=== PATIENT | female | born 1990 | race African-American/Black ===

== ENCOUNTER 2019-05-05 18:08 | Inpatient (IN) | payer OTHER, MEDICAID ==
[2019-05-05] MEDS ORDERED: RINGERS SOLUTION,LACTATED 1,000 ML IV ONE (19:02)
[2019-05-05] MEDS ORDERED: RINGERS SOLUTION,LACTATED 1,000 ML IV PRN (19:02)
[2019-05-05] MEDS ORDERED: MISOPROSTOL 0.2 MG TABLET ONE (19:34)
[2019-05-05] MEDS ORDERED: LIDOCAINE 1% INJ-PF (10 MG/ML) 30 ML SDV ONE (19:34)
[2019-05-05] MEDS ORDERED: OXYTOCIN/NORMAL SALINE 20 UNIT/1,000 ML RTUINJ ONE (19:34)
[2019-05-05] MEDS ORDERED: OXYTOCIN 10 UNIT/ML VIAL ONE (19:34)
[2019-05-05] MEDS ORDERED: OXYTOCIN/NORMAL SALINE 20 UNIT/1,000 ML RTUINJ IV PRN (19:43)
[2019-05-05 20:14] LABS: ABSOLUTE BASOPHILS # (AUTO) 0.1 10^3/uL (0.0-0.2); ABSOLUTE EOSINOPHILS # (AUTO) 0.1 10^3/uL (0.0-0.6); ABSOLUTE LYMPHOCYTES (AUTO) 1.4 10^3/uL (0.5-4.7); ABSOLUTE MONOCYTES (AUTO) 0.7 10^3/uL (0.1-1.4); ABSOLUTE NEUT (AUTO) 4.5 10^3/uL (1.7-8.2); EOSINOPHILS % (AUTO) 1.6 % (0-6); HEMATOCRIT 35.1 % (36.0-47.0); HEMOGLOBIN 11.6 g/dL (12.0-15.5); LYMPHOCYTES % (AUTO) 20.4 % (13-45); MEAN CORPUSCULAR HEMOGLOBIN 28.4 pg (27.0-33.4); MEAN CORPUSCULAR HGB CONC 33.1 g/dL (32.0-36.0); MEAN CORPUSCULAR VOLUME 86 fl (80-97); MONOCYTES % (AUTO) 10.1 % (3-13); PLATELET COUNT 465 10^3/uL (150-450); RED BLOOD COUNT 4.09 10^6/uL (3.72-5.28); RED CELL DISTRIBUTION WIDTH 17.6 % (11.5-14.0); SEGMENTED NEUTROPHILS % (AUTO) 66.9 % (42-78); TOTAL CELLS COUNTED % (AUTO) 100 %; WHITE BLOOD COUNT 6.7 10^3/uL (4.0-10.5)
--- NOTE | 2019-05-05 20:27 | Admission Physical ---
Datetime Report Generated by CPN: 05/05/2019 20:26 CURRENT ADMISSION Chief Complaint: Scheduled Induction of Labor Indication for Induction: Maternal Diabetes Admit Impression : Term, Intrauterine ; No Active Labor; Intact Membranes; Induction of Labor Admit Plan: Admit to Unit; Initiate Labor Induction Protocol ALLERGIES Medication Allergies: No Medication Allergies: No Known Allergies (05/05/2019) Latex: No Latex Allergies OBSTETRICAL HISTORY EDC: 05/04/2019 00:00 : 1 Para: 0 Term: 0 : 0 SAB: 0 IAB: 0 Ectopic: 0 Livin Cesareans: 0 VBACs: 0 Multiple Births: 0 Gestational Diabetes: Yes Rh Sensitization: No Incompetent Cervix: No NO: No Infertility: No ART Treatment: No Uterine Anomaly: No IUGR: No Hx Previous C/S: No Macrosomia: No Hx Loss/Stillborn: No PIH: No Hx : No Placenta Previa/Abruption: No Depression/PP Depression: No PTL/PROM: No Post Hemorrhage: No Current Procedures: None; Ultrasound Obstetrical History Comments: G1-current SEE RECORDS Alcohol: No Marijuana : No Cocaine: No Other Illicit Drugs: No Cigarettes: Never Smoker. 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 Surgery: No Heart Disease: No Hosp/Surgery: No Autoimmune Disorder: No Anesthetic Complications: No Kidney Disease: No Abnormal Pap Smear: No Neuro/Epilepsy: No Psychiatric Disorders: No Other Medical Diseases: No Hepatitis/Liver Disease: No Varicosities/Phlebitis: No Thyroid Dysfunction: No Medical History Comments: Mother-Pre eclampsia, labor, hypertension INFECTIOUS HISTORY Gonorrhea: No Genital Herpes: No Chlamydia: No Tuberculosis: No Syphilis: No Hepatitis: No HIV/AIDS Exposure: No HPV: No PHYSICAL EXAM General: Normal HEENT: Normal Neurologic: Normal Thyroid: Deferred Heart: Normal Lungs: Normal Breast: Deferred Back: Normal Abdomen: Normal Genitourinary Exam: Normal Extremities: Normal DTRs: Normal Pelvic Type: Adequate Vital Signs: Reviewed VAGINAL EXAM Dilatation: 1 Effacement: 60 Station: -3 Contraction Comments: q 3-7 MEMBRANES Membranes: Intact FETUS A EGA: 40.1 Monitoring: External US FHR- Baseline: 125 Variability: Moderate 6-25bpm Accelerations: 15X15 Decelerations: None FHR Category: Category I Presentation: Vertex Admit Comment: 29yo at 40+1ega presents for IOL due to A2GDM. Cvx 1-2/60/-3 anterior/medium. She is having a lot of contractions. Reviewed medications and safety for induction - she is contractioning too much for cervidil or cytotec as discussed. Plan for cooks catheter and pitocin reviewed. Cooks placed and upon placement increased fluid discharge - will get actimprom. A2GDM on glyburide. Rubella NI. Marginal cord insertion - will monitor cord traction after delivery. admit to labor and delivery and anticipate . PLANS FOR LABOR AND DELIVERY Labor and Delivery: None Pain Management: Epidural Feeding Preference: Both Benefit of Breast Feed Discussed: Yes Circumcision: N/A INFORMED CONSENT Informed Consent Obtained: Vaginal Delivery; Induction of Labor; Risks, Benefits and Alternatives Discussed Signature: with User ID: [email or web address]
[2019-05-05 20:37] LABS: APPEARANCE,URINE SLIGHTLY-CLOUDY; BILIRUBIN,URINE NEGATIVE (NEGATIVE); COLOR,URINE YELLOW; GLUCOSE, URINE NEGATIVE (NEGATIVE); KETONES,URINE NEGATIVE (NEGATIVE); LEUKOCYTE ESTERASE,URINE LARGE (NEGATIVE); NITRITE,URINE NEGATIVE (NEGATIVE); PROTEIN,URINE 30 mg/dL (NEGATIVE); URINE SPECIFIC GRAVITY 1.024; UROBILINOGEN,URINE NEGATIVE mg/dL (<2.0)
[2019-05-05 20:51] LABS: URINE AMPHETAMINES SCREEN NEGATIVE; URINE BARBITURATES SCREEN NEGATIVE; URINE BENZODIAZEPINES SCREEN NEGATIVE; URINE COCAINE SCREEN NEGATIVE; URINE MARIJUANA (THC) SCREEN NEGATIVE; URINE METHADONE SCREEN NEGATIVE; URINE PHENCYCLIDINE SCREEN NEGATIVE
[2019-05-05] MEDS ORDERED: BUPIVACAINE HCL 0.25 % INJ/PF (2.5 MG/1 ML) 30 ML VIAL ONE (23:39)
[2019-05-05] MEDS ORDERED: EPHEDRINE SULFATE INJ 50 MG/1 ML AMPULE ONE (23:39)
[2019-05-05] MEDS ORDERED: FENTANYL/BUPIVACAINE/NS/PF 300 MCG/150 ML RTUINJ EPI ONE (23:39)
[2019-05-06] MEDS ORDERED: TERBUTALINE SULFATE INJ/PF 1 MG/1 ML SDV ONE (04:21)
[2019-05-06] MEDS ORDERED: CEFAZOLIN 1 GM/D5W RTU 1 GM/50 ML RTUPB IV ONE ×3 (12:01→17:14)
[2019-05-06] MEDS ORDERED: LIDOCAINE 1.5%/EPINEPHRINE INJ 5 ML AMP ONE (12:03)
[2019-05-06] MEDS ORDERED: CITRIC ACID/SODIUM CITRATE ORAL SOLN 15 ML UDCUP ONE ×2 (12:03→17:15)
[2019-05-06] MEDS ORDERED: SODIUM BICARBONATE 8.4% INJ 50 MEQ/50 ML DISP.SYRIN ONE (14:52)
[2019-05-06] MEDS ORDERED: SODIUM BICARBONATE 4.2% INJ (2.5 MEQ/5 ML) VIAL ONE (14:52)
[2019-05-06] MEDS ORDERED: MIDAZOLAM 2 MG/2 ML INJ ONE (15:07)
[2019-05-06] MEDS ORDERED: KETOROLAC TROMETHAMINE 60 MG/2 ML SDV ONE (15:19)
[2019-05-06] MEDS ORDERED: OXYTOCIN 10 UNIT/ML VIAL ONE (15:20)
[2019-05-06] MEDS ORDERED: OXYCODONE-ACETAMINOPHEN 5-325 MG TABLET PO PRN ×2 (15:29)
[2019-05-06] MEDS ORDERED: MORPHINE SULFATE 10 MG/ML INJ IV PRN ×2 (15:29→15:55)
[2019-05-06] MEDS ORDERED: ONDANSETRON HCL INJ/PF 4 MG/2 ML SDV IV PRN (15:29)
[2019-05-06] MEDS ORDERED: FENTANYL CITRATE INJ/PF 100 MCG/2 ML AMPUL IV PRN ×3 (15:29)
[2019-05-06] MEDS ORDERED: DIPHENHYDRAMINE HCL 50 MG/ML VIAL IV PRN (15:29)
[2019-05-06] MEDS ORDERED: MEPERIDINE HCL/PF INJ 25 MG/1 ML DISP.SYRIN IV PRN (15:29)
[2019-05-06] MEDS ORDERED: PROMETHAZINE HCL INJ 25 MG/1 ML VIAL IV PRN ×3 (15:29→15:55)
[2019-05-06] MEDS ORDERED: ACETAMINOPHEN 1,000 MG/100 ML RTUPB IV PRN (15:55)
[2019-05-06] MEDS ORDERED: ACETAMINOPHEN 325 MG TABLET PO PRN (15:55)
[2019-05-06] MEDS ORDERED: OXYTOCIN/NORMAL SALINE 20 UNIT/1,000 ML RTUINJ IV PRN (15:55)
[2019-05-06] MEDS ORDERED: SIMETHICONE 80 MG TAB.CHEW PO PRN (15:55)
[2019-05-06] MEDS ORDERED: MEASLES,MUMPS&RUBELLA VACC/PF 0.5 ML VIAL SUBCUT PRN (15:55)
[2019-05-06] MEDS ORDERED: DIPH/PERTUSS(ACELL)/TETANUS VAC/PF 0.5 ML SYR (>=10YO) IM PRN (15:55)
--- NOTE | 2019-05-06 16:05 | Operative Report ---
Operative Report DATE OF SURGERY: 05/06/19 PREOPERATIVE DIAGNOSIS: IUP @ 40 04/01, nonreassuring heart tones POSTOPERATIVE DIAGNOSIS: Same OPERATION: Primary low transverse hysterotomy section SURGEON: EILEEN JACOBS ANESTHESIA: Epidural TISSUE REMOVED OR ALTERED: Placenta COMPLICATIONS: None ESTIMATED BLOOD LOSS: 750 cc INTRAOPERATIVE FINDINGS: Female in cephalic presentation with Apgars of 8 and 9 PROCEDURE: PROCEDURE IN DETAIL: The patient was taken to the operating room, prepared and draped in a normal sterile fashion in a supine position with a leftward tilt. A transverse skin incision was made with a scalpel and carried through to the underlying layer of fascia with the same scalpel. The fascia was excised in the midline and extended laterally with Jag. The fascia was then dissected from the rectus muscle sharply with Jag and the rectus muscle was divided and the peritoneal cavity was entered sharply with the same Metzenbaum. With good visualization of the bladder and the uterus the bladder blade was inserted. The hysterotomy was nicked with a scalpel and extended laterally with surgeon finger fraction. The infant was then delivered atraumatically. The nose and mouth were suctioned with a suction bulb, the cord was clamped and cut and handed off to awaiting pediatricians. Cord blood was collected. The placenta was removed manually. The uterus was exteriorized and cleared of clots and debris. The hysterotomy was closed with 0 Monocryl in a running, locked fashion. A second layer of the same suture was used to imbricate to ensure hemostasis. The uterus was returned to the abdomen and peritoneal cavity was cleared of clots and debris. The rectus muscle and peritoneum were repaired with mattress stitch of 2-0 Chromic. The fascia was closed with 0-Vicryl. The subcutaneous layer was closed with plain catgut and the skin was closed with 4-0 Vicryl. The patient tolerated the procedure well. Sponge, lap, and needle counts correct x2 and the patient was taken to recovery in stable condition.
[2019-05-06] MEDS ORDERED: ACETAMINOPHEN 1,000 MG/100 ML RTUPB IV ONE (17:04)
--- NOTE | 2019-05-06 17:55 | Delivery Summary ---
Del Sum A-C Datetime Report Generated by CPN: 05/06/2019 17:55 DELIVERY PERSONNEL DELIVERY PERSONNEL: [id number] Delivery Doctor:: Lauren Bailey MD Anesthesiologist:: Princess Espinosa MD TELETYPE TELEGRAPHER:: Cony Huddleston CRNA Labor and Delivery Nurse:: Jaylene Crenshaw RN Straightening Roll Operator:: MARITZA Martinez Nurse Practitioner:: MISA Patel Nursery Nurse:: Jordana French RN Cord Cutter/DIALYSIS CLINICAL MANAGER: ST Roxana Cord Cutter/DIALYSIS CLINICAL MANAGER: Kami Mondragon, TANK CARPENTER MATERNAL INFORMATION Delivery Anesthesia: Epidural Meds After Delivery Comment: seeanesthesia record Delivery QBL: 1292 Maternal Complications: None LABOR SUMMARY EDC: 05/04/2019 00:00 No. Babies in Womb: 1 Attempted: No Labor Anesthesia: Epidural LABOR INFORMATION Onset of Labor: 05/06/2019 04:00 Group B Beta Strep: NEGATIVE Antibiotics # of Doses: 0 MEMBRANES Membranes Rupture Method: Spontaneous Rupture of Membranes: 05/06/2019 10:50 Length of Rupture (hr): 4.23 Amniotic Fluid Color: Clear Amniotic Fluid Amount: Small Amniotic Fluid Odor: None STAGES OF LABOR Stage 3 hr: 0 Stage 3 min: 1 Total Time in Labor hr: 11 Total Time in Labor min: 5 CSECTION DELIVERY Primary Indication: Nonreassuring Status CSection Urgency: Emergency CSection Incidence: Primary CSection Incision: Lower Uterine Transverse BABY A INFORMATION Infant Delivery Date/Time: 05/06/2019 15:04 Method of Delivery: Forceps: N/A Vacuum Extraction: N/A PRESENTATION/POSITION BABY A Presentation: Cephalic PLACENTA INFORMATION BABY A Placenta Delivery Time : 05/06/2019 15:05 Placenta Method of Delivery: Spontaneous Placenta Status: Delivered SCORES BABY A Heart Rate 1 min: >100 bpm Resp Effort 1 min: Good Cry Reflex Irritability 1 min: Cough or Sneeze or Pulls Away Muscle Tone 1 min: Active Motion Color 1 min: Body [place], Extremities Blue Resuscitation Effort 1 min: Tactile Stimulation SCORE 1 MIN: 9 Heart Rate 5 min: >100 bpm Resp Effort 5 min: Good Cry Reflex Irritability 5 min: Cough or Sneeze or Pulls Away Muscle Tone 5 min: Active Motion Color 5 min: Body [place], Extremities Blue Resuscitation Effort 5 min: Tactile Stimulation SCORE 5 MIN: 9 INFANT INFORMATION BABY A Gestational Age at Delivery: 40.0 Gestational Status: Full Term- 39- 40.6 Weeks Outcome : Liveborn Infant Condition : Stable Sex: Female IDENTIFICATION BABY A Verification Date/Time: 05/06/2019 15:10 ID Band Number: [id number] Mother's Name Verified: Yes Infant RN Verifying : SAutry Additional Verifying Personnel: CBactat CORD INFORMATION BABY A No. Cord Vessels: 3 Nuchal Cord : Around Neck x2, Tight Cord Blood Taken: Yes-For Storage (Mom's Blood type +) ASSESSMENT BABY A Infant Complications: Multiple Variable Decels Physical Findings at Delivery: Within Normal Limits Infant Respirations: Appears Normal Skin to Skin: Yes Care By: C Bactat Transferred To: [facility]
[2019-05-06] MEDS ORDERED: CEFAZOLIN 2 GM/D5W RTU 2 GM/50 ML RTUPB IV SCH (18:00)
[2019-05-06] MEDS ORDERED: IBUPROFEN 800 MG TABLET PO SCH (18:00)
[2019-05-06] MEDS: DOCUSATE SODIUM 100 MG CAPSULE PO SCH (19:25)
[2019-05-06] MEDS: OXYCODONE-ACETAMINOPHEN 5-325 MG TABLET PO PRN (19:28)
[2019-05-06] MEDS: KETOROLAC TROMETHAMINE INJ/PF 30 MG/1 ML SDV IV SCH (22:21)
[2019-05-07] MEDS: OXYCODONE-ACETAMINOPHEN 5-325 MG TABLET PO PRN ×5 (01:17→19:40)
[2019-05-07] MEDS: KETOROLAC TROMETHAMINE INJ/PF 30 MG/1 ML SDV IV SCH ×2 (05:54→14:22)
[2019-05-07 07:44] LABS: HEMATOCRIT 27.3 % (36.0-47.0); MEAN CORPUSCULAR HEMOGLOBIN 28.7 pg (27.0-33.4); MEAN CORPUSCULAR HGB CONC 33.3 g/dL (32.0-36.0); MEAN CORPUSCULAR VOLUME 86 fl (80-97); PLATELET COUNT 340 10^3/uL (150-450); RED BLOOD COUNT 3.17 10^6/uL (3.72-5.28); RED CELL DISTRIBUTION WIDTH 17.9 % (11.5-14.0); WHITE BLOOD COUNT 7.1 10^3/uL (4.0-10.5)
[2019-05-07 07:45] LABS: HEMOGLOBIN 9.1 g/dL (12.0-15.5)
[2019-05-07] MEDS: DOCUSATE SODIUM 100 MG CAPSULE PO SCH ×2 (10:02→19:14)
[2019-05-07] MEDS: PRENATAL VITAMIN W DHA CAPSULE PO SCH (10:02)
--- NOTE | 2019-05-07 16:32 | PDOC PROGRESS REPORT ---
Subjective-OB Progress Note for:: 05/07/19 Subjective: reports bleeding slowing, pain controlled with current meds, denies needs. +passing gas Physical Exam (OB) Vital Signs: Temp Pulse Resp BP Pulse Ox 98.5 F 110 H 18 110/65 98 05/07/19 15:07 05/07/19 15:07 05/07/19 15:07 05/07/19 15:07 05/07/19 15:07 Intake & Output 05/06/19 05/07/19 05/08/19 06:59 06:59 06:59 Output Total 685 500 Balance -685 -500 Weight 87 kg - PIH/Pre-Eclampsia Clonus: Negative Headache: Absent Epigastric Pain: No Visual Changes: No - Dressing Removed: No Incision: Dressing Closure Type: opsite - Lochia Lochia Amount: Scant < 10 ml Lochia Color: Rubra/Red - Abdomen Description: Tender, Soft, Round Hernia Present: No Fundal Description: Firm, Midline Fundal Height: u/u - u/2 - Extremities Lower extremities: Hoda's sign - neg Calf: Normal, Nontender Objective-Diagnostic Laboratory: 05/07/19 06:29 05/07/19 06:29 WBC 7.1 RBC 3.17 L Hgb 9.1 L D Hct 27.3 L MCV 86 MCH 28.7 MCHC 33.3 RDW 17.9 H Plt Count 340 Assessment and Plan(PN) - Time Spent with Patient Time with patient: Less than 15 minutes Medications reviewed and adjusted accordingly: Yes - Disposition Anticipated Discharge: Home Within: within 48 hours
[2019-05-07] MEDS: IBUPROFEN 800 MG TABLET PO SCH ×2 (18:52→23:37)
[2019-05-08] MEDS: OXYCODONE-ACETAMINOPHEN 5-325 MG TABLET PO PRN ×4 (03:53→20:39)
[2019-05-08] MEDS: IBUPROFEN 800 MG TABLET PO SCH ×5 (05:25→23:27)
--- NOTE | 2019-05-08 09:30 | PDOC PROGRESS REPORT ---
Subjective-OB Progress Note for:: 05/08/19 Subjective: pt in bed, fmaily at BS, does not feel like she can go home today, not passing gas and incisional pain Physical Exam (OB) Vital Signs: Temp Pulse Resp BP Pulse Ox 98.0 F 97 16 110/59 L 100 05/08/19 07:59 05/08/19 07:59 05/08/19 07:59 05/08/19 07:59 05/08/19 07:59 Intake & Output 05/07/19 05/08/19 05/09/19 06:59 06:59 06:59 Output Total 685 500 Balance -685 -500 Weight 88.4 kg - PIH/Pre-Eclampsia DTR's: 1 + Clonus: Negative Headache: Absent Epigastric Pain: No Visual Changes: No - Dressing Removed: No - Opsite Incision: Dressing Closure Type: opsite - Lochia Lochia Amount: Scant < 10 ml Lochia Color: Rubra/Red - Abdomen Description: Tender, Soft, Round Hernia Present: No Fundal Description: Firm Fundal Height: u/u - u/2 Objective-Diagnostic Laboratory: 05/07/19 06:29 Assessment and Plan(PN) - Assessment and Plan (1) Anemia Qualifiers: Anemia type: iron deficiency Is this a current diagnosis for this admission?: Yes (2) delivery delivered Is this a current diagnosis for this admission?: Yes (3) Gestational diabetes mellitus (GDM) during childbirth controlled on oral hypoglycemic therapy Is this a current diagnosis for this admission?: Yes - Time Spent with Patient Time with patient: Less than 15 minutes Medications reviewed and adjusted accordingly: Yes - Disposition Anticipated Discharge: Home Within: within 24 hours
[2019-05-08] MEDS: PRENATAL VITAMIN W DHA CAPSULE PO SCH (09:42)
[2019-05-08] MEDS: DOCUSATE SODIUM 100 MG CAPSULE PO SCH ×2 (09:42→17:45)
[2019-05-09] MEDS: OXYCODONE-ACETAMINOPHEN 5-325 MG TABLET PO PRN ×3 (00:49→13:19)
[2019-05-09] MEDS: IBUPROFEN 800 MG TABLET PO SCH ×2 (05:13→11:58)
[2019-05-09] MEDS: DOCUSATE SODIUM 100 MG CAPSULE PO SCH (09:15)
[2019-05-09] MEDS: PRENATAL VITAMIN W DHA CAPSULE PO SCH (09:15)
--- NOTE | 2019-05-09 11:38 | PDOC DISCHARGE SUMMARY ---
Impression - Admit/DC Date/PCP Admission Date/Primary Care Provider: 05/05/19 18:08 CAYLA SAUCEDO MD Discharge Date: 05/09/19 - POD #3, s/p Primary , failed IOL, Needs MMR vaccine, breast and bottlefeeding - Discharge Diagnosis (1) Normal course Is this a current diagnosis for this admission?: Yes (2) Anemia Is this a current diagnosis for this admission?: Yes (3) delivery delivered Is this a current diagnosis for this admission?: Yes (4) Gestational diabetes mellitus (GDM) during childbirth controlled on oral hypoglycemic therapy Is this a current diagnosis for this admission?: Yes - Additional Information Resuscitation Status: Full Code Discharge Diet: As Tolerated, Regular Discharge Activity: Activity As Tolerated, No Driving, No Lifting Over 10 Brule s, Pelvic Rest [facility] [Provider Group] Prescriptions: Ibuprofen [Motrin 800 mg Tablet] 800 mg PO Q6 #60 tablet Oxycodone HCl/Acetaminophen [Percocet 5-325 mg Tablet] 1 tab PO Q4HP PRN #30 tablet PRN Reason: Pain Scale Of 4 Home Medications: Pnv No.95/Ferrous Fum/Folic AC [ Caplet] 1 tab PO DAILY 05/05/19 Ibuprofen [Motrin 800 mg Tablet] 800 mg PO Q6 #60 tablet 05/09/19 Oxycodone HCl/Acetaminophen [Percocet 5-325 mg Tablet] 1 tab PO Q4HP PRN #30 tablet 05/09/19 HPI Reason(s) for Admission: Induction of Labor Procedures: Ultrasound Intrapartum Procedure(s): : Low Cervical, Transverse Results Laboratory Results: WBC 7.1 10^3/uL (4.0-10.5) 05/07/19 06:29 RBC 3.17 10^6/uL (3.72-5.28) L 05/07/19 06:29 Hgb 9.1 g/dL (12.0-15.5) L D 05/07/19 06:29 Hct 27.3 % (36.0-47.0) L 05/07/19 06:29 MCV 86 fl (80-97) 05/07/19 06:29 MCH 28.7 pg (27.0-33.4) 05/07/19 06:29 MCHC 33.3 g/dL (32.0-36.0) 05/07/19 06:29 RDW 17.9 % (11.5-14.0) H 05/07/19 06:29 Plt Count 340 10^3/uL (150-450) 05/07/19 06:29 Lymph % (Auto) 20.4 % (13-45) 05/05/19 19:48 Taylor % (Auto) 10.1 % (3-13) 05/05/19 19:48 Eos % (Auto) 1.6 % (0-6) 05/05/19 19:48 Baso % (Auto) 1.0 % (0-2) 05/05/19 19:48 Absolute Neuts (auto) 4.5 10^3/uL (1.7-8.2) 05/05/19 19:48 Absolute Lymphs (auto) 1.4 10^3/uL (0.5-4.7) 05/05/19 19:48 Absolute Monos (auto) 0.7 10^3/uL (0.1-1.4) 05/05/19 19:48 Absolute Eos (auto) 0.1 10^3/uL (0.0-0.6) 05/05/19 19:48 Absolute Basos (auto) 0.1 10^3/uL (0.0-0.2) 05/05/19 19:48 Seg Neutrophils % 66.9 % (42-78) 05/05/19 19:48 Urine Color YELLOW 05/05/19 18:23 Urine Appearance SLIGHTLY-CLOUDY 05/05/19 18:23 Urine pH 6.0 (5.0-9.0) 05/05/19 18:23 Ur Specific [place] 1.024 05/05/19 18:23 Urine Protein 30 mg/dL (NEGATIVE) H 05/05/19 18:23 Urine Glucose (UA) NEGATIVE mg/dL (NEGATIVE) 05/05/19 18:23 Urine Ketones NEGATIVE mg/dL (NEGATIVE) 05/05/19 18:23 Urine Blood MODERATE (NEGATIVE) H 05/05/19 18:23 Urine Nitrite NEGATIVE (NEGATIVE) 05/05/19 18:23 Urine Bilirubin NEGATIVE (NEGATIVE) 05/05/19 18:23 Urine Urobilinogen NEGATIVE mg/dL (<2.0) 05/05/19 18:23 Ur Leukocyte Esterase LARGE (NEGATIVE) H 05/05/19 18:23 Urine WBC (Auto) 50 /HPF 05/05/19 18:23 Urine RBC (Auto) 2 /HPF 05/05/19 18:23 Urine Bacteria (Auto) TRACE /HPF 05/05/19 18:23 Squamous Epi Cells Auto 4 /HPF 05/05/19 18:23 Urine Mucus (Auto) OCC /LPF 05/05/19 18:23 Urine Ascorbic Acid NEGATIVE (NEGATIVE) 05/05/19 18:23 Membranes Rupture NEGATIVE (NEGATIVE) 05/05/19 20:16 Urine Opiates Screen NEGATIVE 05/05/19 18:23 Urine Methadone Screen NEGATIVE 05/05/19 18:23 Ur Barbiturates Screen NEGATIVE 05/05/19 18:23 Ur Phencyclidine Scrn NEGATIVE 05/05/19 18:23 Ur Amphetamines Screen NEGATIVE 05/05/19 18:23 U Benzodiazepines Scrn NEGATIVE 05/05/19 18:23 Urine Cocaine Screen NEGATIVE 05/05/19 18:23 U Marijuana (THC) Screen NEGATIVE 05/05/19 18:23 RPR NONREACTIVE (NONREACTIVE) 05/05/19 19:48 Blood Type A2sub POSITIVE 05/05/19 19:48 Blood Type Confirm A2sub POSITIVE 05/06/19 10:36 Antibody Screen NEGATIVE 05/05/19 19:48 Antigen Identification A1 Antigen - NEGATIVE 05/05/19 19:48 Plan Plan of Treatment: d/c to home, f/up with [facility] in one week for incision check Time Spent: Less than 30 Minutes
[2019-05-09 11:55] VITALS: BP 133/76
== END 2019-05-09 14:00 | disposition home or self-care (01) | DRG 788 ==
LOC: LR 18:08 → 2S 05-06 18:00
PROVIDERS: ADMIT Student in an Organized Health Care Education/Training Program; ATTEND Student in an Organized Health Care Education/Training Program
PROC: 10D00Z1 Extraction of Products of Conception, Low, Open Approach (ICD-10-PCS; principal; 2019-05-06)
DX: O24.425 Gestational diabetes mellitus in childbirth, controlled by oral hypoglycemic drugs (principal); O76 Abnormality in fetal heart rate and rhythm complicating labor and delivery; O69.1XX0 Labor and delivery complicated by cord around neck, with compression, not applicable or unspecified; Z3A.40 40 weeks gestation of pregnancy; Z37.0 Single live birth; O61.8 Other failed induction of labor; O99.02 Anemia complicating childbirth
CPT/HCPCS: 1961; 36415; 80307; 81001; 84112; 85025; 85027; 86592; 86850; 86900; 86901; 88307; 94760; 94799; J0131; J0690; J1885; J2250; J2270; J2590; J3010; J3105; J3490; J7120